=== PATIENT | female | born 1970 | race Caucasian/White ===

== ENCOUNTER 2017-08-10 14:25 | Emergency (ER) | payer OTHER ==
[2017-08-10] MEDS ORDERED: TORAdol 30 mg Injection IM ONE (15:29)
--- NOTE | 2017-08-10 15:37 | XRAY ---
Exam: 3 view left foot series from 08/10/2017. Comparison: None of the left foot. The patient did have a prior right foot exam on 11/28/2007. Indication: No known injury, pain within lateral aspect of left foot. Findings: AP, oblique, and lateral radiographs of the left foot are submitted for evaluation. I see no acute fracture or dislocation. Specifically, no abnormality is seen involving the left fourth or fifth metatarsals. The tarsal-metatarsal junctions align ed correctly. There is mild hallux valgus at the left first MTP joint with slight lateral subluxation of the base of the left great toe with respect to the distal articular surface of the first metatarsal head.. I also note some mild hypertrophic change at the medial margin of the distal left first metatarsal head. In addition, there is some focal soft tissue swelling overlying the dorsal medial aspect of the left first metatarsal head which may represent a bunion. Correlate clinically. 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 The remainder of the joint spaces appears unremarkable. There is an unremarkable plantar arch. A moderate sized plantar left calcaneal spur is seen. No radiopaque soft tissue foreign body is seen. Impression: 1. No acute fracture or dislocation of the left foot is seen. The reason for the patient's lateral left foot pain is not evident by this study. 2. Mild hallux valgus and bunion formation. 3. There is an 8.5 mm in length plantar left calcaneal spur present.
--- NOTE | 2017-08-10 15:38 | ERPHSYRPT ---
- History of Present Illness Time Seen by Provider: 08/10/17 15:24 Source: patient Exam Limitations: no limitations Patient Subjective Stated Complaint: pt here for pain to right foot with no injury Triage Nursing Assessment: pt unable to bear full weight on right foot, has swelling to inner aspect of foost, strong pedal pulse Physician History: 47-year-old white female arrives with complaint of pain in her left foot plantar surface symptoms for a month which is worse for the past 2-3 days. Patient denies any injury she states that her pain is severe in the past couple days. Past medical history patient denies. Past surgical history hernia repair, hysterectomy, Method of Injury: unknown Occurred: other (symptoms for a month worse the past couple of days) Severity of Pain-Max: moderate Severity of Pain-Current: moderate Lower Extremities Pain: foot: right Modifying Factors: Improves With: other (walking) Associated Symptoms: other (pain with walking) Allergies/Adverse Reactions: Penicillins Allergy (Verified 08/10/17 14:39) Hx Influenza Vaccination/Date Given: No Hx Pneumococcal Vaccination/Date Given: No Immunizations Up to Date: Yes - Review of Systems Constitutional: No Fever, No Chills Eyes: No Symptoms Ears, Nose, & Throat: No Symptoms Respiratory: No Cough, No Dyspnea Cardiac: No Chest Pain, No Edema, No Syncope Abdominal/Gastrointestinal: No Abdominal Pain, No Nausea, No Vomiting, No Diarrhea Genitourinary Symptoms: No Dysuria Musculoskeletal: Other (pain and swelling plantar surface left foot for 1 month worse past several days) Skin: No Rash Neurological: No Dizziness, No Focal Weakness, No Sensory Changes Psychological: No Symptoms Endocrine: No Symptoms All Other Systems: Reviewed and Negative - Past Medical History Pertinent Past Medical History: No - Past Surgical History Past Surgical History: Yes Gastrointestinal: Hernia Repair Female Surgical History: Hysterectomy, Section - Social History Smoking Status: Current every day smoker Exposure to second hand smoke: Yes Drug Use: none Patient Lives Alone: No - Female History Hx Last Menstrual Period: hyster Hx Now: No - Nursing Vital Signs Nursing Vital Signs: Initial Vital Signs Pulse Rate 77 08/10/17 14:34 Respiratory Rate 16 08/10/17 14:34 Blood Pressure 104/78 08/10/17 14:34 O2 Sat by Pulse Oximetry 96 08/10/17 14:34 Pain Scale Pain Intensity 8 - Physical Exam General Appearance: mild distress Eyes, Ears, Nose, Throat Exam: moist mucous membranes Neck Exam: non-tender, supple Cardiovascular/Respiratory Exam: chest non-tender, normal breath sounds, regular rate/rhythm, no respiratory distress Gastrointestinal/Abdominal Exam: non-tender, guarding Back Exam: normal inspection, No vertebral tenderness Hips Exam: bilateral: non-tender, normal inspection, normal range of motion, no evidence of injury Legs Exam: bilateral leg: non-tender, normal inspection, normal range of motion , no evidence of injury Knees Exam: bilateral knee: non-tender, normal inspection, normal range of motion, no evidence of injury Ankle Exam: bilateral ankle: non-tender, normal inspection, normal range of motion, no evidence of injury Foot Exam: right foot: non-tender, normal inspection, no evidence of injury, left foot: other (tenderness with palpation, mild edema, plantar surface left foot), bilateral foot: normal range of motion Neuro/Tendon Exam: normal sensation, normal motor functions Mental Status Exam: alert, oriented x 3, cooperative Skin Exam: other (small1 cm darkened area left medial foot distal to heel) SpO2 Interpretation: normal (96%) SpO2: 96 Oxygen Delivery: Room Air - Course Nursing assessment & vital signs reviewed: Yes - Radiology Exams Left Foot X-ray Interpretation: Discussed w/ radiologist (x-ray left foot: Impression: 1. No acute fracture or dislocation of the left foot is seen. The reason for the patient's lateral left foot pain is not evident by this study. 2. Mild hallux valgus and bunion formation. 3. 8.5 mm in length plantar left calcaneal spur is present.) Ordered Tests: Active Orders 24 hr Category Date Time Status Splint STAT Care 08/10/17 15:51 Active FOOT (MINIMUM 3 VIEWS) Stat Exams 08/10/17 15:12 Completed Medication Summary Discontinued Medications Generic Name Dose Route Start Last Admin Trade Name Freq PRN Reason Stop Dose Admin Ketorolac Tromethamine 60 mg 08/10/17 15:29 08/10/17 15:50 Toradol 30 Mg Injection IM 08/10/17 15:30 60 mg STAT ONE Administration Ketorolac Tromethamine Confirm 08/10/17 15:49 Toradol 30 Mg Injection Administered 08/10/17 15:50 Dose 60 mg .ROUTE .STK-MED ONE - Departure Time of Disposition: 15:52 Departure Disposition: Home Clinical Impression: Left foot pain, Plantar fasciitis of left foot Condition: Fair Critical Care Time: No Referrals: CARINA LOERA MD [Primary Care Provider] - Additional Instructions: Return home. Ice to left foot 24-48 hours. Use postop shoe. May use hard sole shoe with heel pads. Naprosyn as directed. [place] as directed. Follow-up with your family doctor. Return for acute distress or for severe symptoms. Prescriptions: Hydrocodone/Acetaminophen [[place] 5-325 Tablet] 1 tab PO Q4-6HPRN PRN #12 tablet MDD 6 tablets PRN Reason: Pain Naproxen 500 mg [Naprosyn 500 MG] 500 mg PO BID #20 tablet
[2017-08-10] MEDS ORDERED: TORAdol 30 mg Injection ONE (15:49)
[2017-08-10 16:13] VITALS: BP 96/44; PULSE 68; O2SAT 98
== END 2017-08-10 16:21 | disposition home or self-care (01) ==
LOC: ED 14:25
DX: M79.672 Pain in left foot (principal); M72.2 Plantar fascial fibromatosis
CPT/HCPCS: 73630; 96372; 99284; J1885

== ENCOUNTER 2020-12-26 15:49 | Emergency (ER) | payer OTHER ==
--- NOTE | 2020-12-26 15:53 | ERPHSYRPT ---
- History of Present Illness Time Seen by Provider: 12/26/20 15:52 Source: patient Exam Limitations: no limitations Physician History: This is a right-handed 50-year-old white female who underwent a right upper extremity surgery approximately 8 days ago. She returned to work and it requires that she does lifting balancing and being active with her upper extremity. Because she had surgery on her right upper extremity she has switched to using her left upper extremity which she does not ordinarily use. She noticed pain in the left shoulder on Wednesday and the last 3 days it is worsened. She denies any fall or localized trauma. She is not on any postoperative narcotic pain medications. She has no primary chest pain. She has no cough. She has no shortness of breath. Occurred: days ago (3) Method of Injury: unknown Quality: aching, throbbing Severity of Pain-Max: moderate Severity of Pain-Current: moderate Extremities Pain Location: shoulder: left Modifying Factors: Improves With: movement Associated Symptoms: No chest discomfort, No chest pain, No dyspnea, No neck pain Allergies/Adverse Reactions: Penicillins Allergy (Verified 08/10/17 14:39) Hx Influenza Vaccination/Date Given: No Hx Pneumococcal Vaccination/Date Given: No Travel Risk - International Travel Have you traveled outside of the country in past 3 weeks: No - Coronavirus Screening Are you exhibiting any of the following symptoms?: No Close contact with a COVID-19 positive Pt in past 14-21 Days: No - Review of Systems Constitutional: No Symptoms Eyes: No Symptoms Ears, Nose, & Throat: No Symptoms Respiratory: No Symptoms Cardiac: No Symptoms Abdominal/Gastrointestinal: No Symptoms Genitourinary Symptoms: No Symptoms Musculoskeletal: Joint Pain Skin: No Symptoms (Left shoulder) Neurological: No Symptoms Psychological: No Symptoms Endocrine: No Symptoms Hematologic/Lymphatic: No Symptoms Immunological/Allergic: No Symptoms All Other Systems: Reviewed and Negative - Past Medical History Pertinent Past Medical History: No - Past Surgical History Past Surgical History: Yes Gastrointestinal: Hernia Repair Female Surgical History: Hysterectomy, Section - Social History Smoking Status: Current every day smoker Exposure to second hand smoke: Yes Drug Use: none Patient Lives Alone: No - Nursing Vital Signs Nursing Vital Signs: Initial Vital Signs Temperature 98.3 F 12/26/20 15:56 Pulse Rate 97 H 12/26/20 15:56 Respiratory Rate 20 12/26/20 15:56 Blood Pressure 123/96 12/26/20 15:56 O2 Sat by Pulse Oximetry 96 12/26/20 15:56 Pain Scale Pain Intensity 10 - Physical Exam General Appearance: no apparent distress, alert, anxiety Eyes, Ears, Nose, Throat Exam: normal ENT inspection, moist mucous membranes Neck Exam: normal inspection, non-tender, supple, full range of motion Cardiovascular/Respiratory Exam: chest non-tender, normal breath sounds, regular rate/rhythm, heart sounds normal, no respiratory distress Abdominal Exam: non-tender Back Exam: normal inspection, normal range of motion, No CVA tenderness, No vertebral tenderness Shoulder Exam: normal inspection, no evidence of injury, limited ROM (Secondary to pain on the left) Elbow/Forearm Exam: normal inspection, non-tender, no evidence of injury, normal ROM (This is referring to the left side. The right side has a cast on her right hand wrist and forearm) Wrist Exam: normal inspection (Left side), non-tender (Left side), no evidence of injury (Side), normal ROM (Left side) Hand Exam: normal inspection, non-tender (Left side), no evidence of injury (Left side), normal ROM (Left side) Neuro/Tendon Exam: normal sensation, normal motor functions, normal tendon functions Mental Status Exam: alert, oriented x 3, cooperative Skin Exam: normal color, warm, dry SpO2 Interpretation: normal O2 Delivery: Room Air - Course Nursing assessment & vital signs reviewed: Yes Ordered Tests: Active Orders 24 hr Category Date Time Status SHOULDER Stat Exams 12/26/20 16:17 Taken Medication Summary Discontinued Medications Generic Name Dose Route Start Last Admin Trade Name Dario PRN Reason Stop Dose Admin Methylprednisolone Sodium 0 mg 12/26/20 16:18 12/26/20 17:07 Succinate 125 mg/ Sterile IM 12/26/20 16:19 125 mg Water 2 ml STAT ONE Administration Hydromorphone HCl 1 mg 12/26/20 16:17 12/26/20 17:08 Hydromorphone 1 Mg/1ml Inj 1 Mg/Ml Syringe IM 12/26/20 16:18 1 mg STAT ONE Administration Hydromorphone HCl Confirm 12/26/20 17:04 Hydromorphone 1 Mg/1ml Inj 1 Mg/Ml Syringe Administered 12/26/20 17:05 Dose 1 mg .ROUTE .STK-MED ONE Methylprednisolone Sodium Succinate Confirm 12/26/20 17:04 Methylprednis Sod Succ 125 Mg/2 Ml Vial Administered 12/26/20 17:05 Dose 125 mg .ROUTE .STK-MED ONE Ondansetron HCl 4 mg 12/26/20 16:18 12/26/20 17:07 Zofran 4 Mg/Udtablet Orally Disintegrating PO 12/26/20 16:19 4 mg STAT ONE Administration Ondansetron HCl Confirm 12/26/20 17:03 Zofran 4 Mg/Udtablet Orally Disintegrating Administered 12/26/20 17:04 Dose 4 mg .ROUTE .STK-MED ONE Orphenadrine Citrate 60 mg 12/26/20 16:18 12/26/20 17:08 Orphenadrine Citrate 60 Mg/2 Ml Amp IM 12/26/20 16:19 60 mg STAT ONE Administration Orphenadrine Citrate Confirm 12/26/20 17:04 Orphenadrine Citrate 60 Mg/2 Ml Amp Administered 12/26/20 17:05 Dose 60 mg .ROUTE .STK-MED ONE Sterile Water Confirm 12/26/20 17:04 Water For Injection,Sterile 10 Ml Vial Administered 12/26/20 17:05 Dose 10 ml IJ .STK-MED ONE - Progress Progress: improved, pain not gone completely Progress Note: 12/26/20 18:05 X-ray left shoulder shows no acute fracture or dislocation. Counseled pt/family regarding: diagnosis, need for follow-up, rad results - Departure Departure Disposition: Home Clinical Impression: Strain of left levator scapulae muscle Condition: Stable Critical Care Time: No Referrals: CARINA LOERA MD [Primary Care Provider] - Follow up/PCP as directed Additional Instructions: Ice pack to left shoulder 3 times a day for the next 48 hours. Wear the sling for comfort sake. Take your medications as prescribed. Follow-up with orthopedic clinic here at [facility] tomorrow morning 8:00 for further management and evaluation. Forms: Work/School Release Form Prescriptions: Cyclobenzaprine HCl 10 mg [Cyclobenzaprine 10 MG] 10 mg PO TID #10 tablet Naproxen 500 mg [Naprosyn 500 MG] 500 mg PO BID #10 tablet Oxycodone HCl/Acetaminophen [Percocet 5-325 mg Tablet] 1 each PO Q8H PRN #6 tablet MDD 3 PRN Reason: Pain
[2020-12-26] MEDS ORDERED: Hydromorphone 1 mg/ml Injection IM ONE (16:17)
[2020-12-26] MEDS ORDERED: Norflex 60 MG/2 ML IM ONE (16:18)
[2020-12-26] MEDS ORDERED: ZOFRAN ODT 4 MG PO ONE (16:18)
[2020-12-26] MEDS ORDERED: solu-MEDROL 125 MG, Sterile H2O 10 ml 2 ML IM ONE ×2 (16:18)
[2020-12-26] MEDS ORDERED: ZOFRAN ODT 4 MG ONE (17:03)
[2020-12-26] MEDS ORDERED: Norflex 60 MG/2 ML ONE (17:04)
[2020-12-26] MEDS ORDERED: Hydromorphone 1 mg/ml Injection ONE (17:04)
[2020-12-26] MEDS ORDERED: Sterile H2O 10 ml IJ ONE (17:04)
[2020-12-26] MEDS ORDERED: solu-MEDROL ONE (17:04)
--- NOTE | 2020-12-27 09:10 | XRAY ---
Indication: Pain. Limited range of motion. Comparison: None 3 view left shoulder demonstrates mild osteopenia, moderate AC degenerative arthropathy, 1.7 cm ossification adjacent to greater tuberosity humerus presumed sequela old injury/inflammation, borderline cardiomegaly, and minimal left lung base fibrosis/scarring. No other bony, articular, or soft tissue abnormalities.
== END 2020-12-26 18:48 | disposition home or self-care (01) ==
LOC: ED 15:49
DX: S46.812A Strain of other muscles, fascia and tendons at shoulder and upper arm level, left arm, initial encounter (principal); X50.0XXA Overexertion from strenuous movement or load, initial encounter; Y99.0 Civilian activity done for income or pay; Z72.0 Tobacco use
CPT/HCPCS: 73030; 96372; 99284; J1170; J2360; J2930; Q0162

== ENCOUNTER 2023-02-08 03:57 | Emergency (ER) | payer OTHER ==
[2023-02-08 04:23] VITALS: RESP 16; TEMP 98.1
[2023-02-08] MEDS ORDERED: Zithromax 250 MG TABLET PO ONE (04:59)
[2023-02-08] MEDS ORDERED: Zithromax 250 MG TABLET ONE (05:03)
[2023-02-08 05:09] VITALS: BP 119/77; PULSE 84
--- NOTE | 2023-02-08 05:09 | ERPHSYRPT ---
- History of Present Illness Time Seen by Provider: 02/08/23 04:59 Source: patient Exam Limitations: no limitations Patient Subjective Stated Complaint: pt states she has a sore throat and feels like she has swelling in her throat. Triage Nursing Assessment: pt alert and oriented, answers questions approp. pt ambulates into room with steady gait noted. respirations nonlabored. skin warm and dry. Physician History: 52-year-old female presented in the ER with 2 days history of progressively worsening sore throat initially started on 1 side and gradually on the other side with painful swallowing. No difficulty breathing or cough. Subjective feeling of fever and chills. Denies any known sick contact. Allergies/Adverse Reactions: Penicillins Allergy (Verified 02/08/23 04:23) Hx Tetanus, Diphtheria Vaccination/Date Given: Yes Hx Influenza Vaccination/Date Given: No Hx Pneumococcal Vaccination/Date Given: No Immunizations Up to Date: Yes Travel Risk - International Travel Have you traveled outside of the country in past 3 weeks: No - Coronavirus Screening Are you exhibiting any of the following symptoms?: No Close contact with a COVID-19 positive Pt in past 14-21 Days: No - Vaccine Status Have you recieved a Covid-19 vaccination: No - Review of Systems Constitutional: Fever, Chills Eyes: No Symptoms Ears, Nose, & Throat: Throat Pain, Throat Swelling Respiratory: No Symptoms Cardiac: No Symptoms Abdominal/Gastrointestinal: No Symptoms Genitourinary Symptoms: No Symptoms Neurological: No Symptoms Hematologic/Lymphatic: No Symptoms - Past Medical History Pertinent Past Medical History: No Other Medical History: mvp - Past Surgical History Past Surgical History: Yes Gastrointestinal: Hernia Repair Musculoskeletal: Orthopedic Surgery Female Surgical History: Hysterectomy, Section Other Surgical History: carpal tunnel - Social History Smoking Status: Current every day smoker How long have you smoked: 34 Exposure to second hand smoke: Yes Drug Use: none Patient Lives Alone: No - Nursing Vital Signs Nursing Vital Signs: Initial Vital Signs Temperature 98.1 F 02/08/23 04:04 Pulse Rate 77 02/08/23 04:04 Respiratory Rate 16 02/08/23 04:04 Blood Pressure 139/92 02/08/23 04:04 O2 Sat by Pulse Oximetry 96 02/08/23 04:04 Pain Scale Pain Intensity 6 - Physical Exam General Appearance: no apparent distress, alert Eye Exam: bilateral eye: normal inspection, PERRL, EOMI Ear Exam: bilateral ear: auricle normal, canal normal, TM normal Nasal Exam: normal inspection Throat Exam: normal, moist mucus membranes, pharynx tenderness, tonsillar exudate, tonsillar swelling Neck Exam: normal inspection, non-tender, supple, full range of motion, lymphadenopathy (L) Cardiovascular/Respiratory Exam: normal breath sounds, regular rate/rhythm Neurologic Exam: alert, oriented x 3, cooperative, calibrator barometers II-XII nml as tested Skin Exam: normal color SpO2 Interpretation: normal SpO2: 96 O2 Delivery: Room Air Ordered Tests: Medication Summary Discontinued Medications Generic Name Dose Route Start Last Admin Trade Name Dario PRN Reason Stop Dose Admin Azithromycin 500 mg 02/08/23 04:59 02/08/23 05:04 Azithromycin 250 Mg Tablet PO 02/08/23 05:00 500 mg STAT ONE Administration Azithromycin Confirm 02/08/23 05:03 Azithromycin 250 Mg Tablet Administered 02/08/23 05:04 Dose 500 mg .ROUTE .STK-MED ONE Lab/Rad Data: Laboratory Results 02/08/23 Range/Units 04:08 Influenza Type A Ag Cancelled Influenza Type B Ag Cancelled RSV (PCR) Cancelled SARS-CoV-2 (PCR) Cancelled Group A Strep Antibody DETECTED (NEGATIVE) - Progress Progress: unchanged Progress Note: 02/08/23 05:08 52-year-old is evaluated for sore throat for couple of days without cough or d ifficulty breathing. Patient is afebrile. She has a positive rapid strep test. She is started on Zithromax. Recommended supportive care along with it. Discussed signs symptoms of worsening needing return to ER which she seems understanding. Stable for discharge. Counseled pt/family regarding: lab results, diagnosis, need for follow-up Medical Desision Making - Diagnostic Testing Diagnostic test were ordered, analyzed, and reviewed by me: Yes - Risk of complications The pt has a mod risk of morbidity or mortality based on: Need for prescription drug management - Departure Departure Disposition: Home Clinical Impression: Acute streptococcal pharyngitis Condition: Stable Critical Care Time: No Referrals: DOCTOR,NO FAMILY [Primary Care Provider] - Follow up with PCP 2 days Instructions: Sore Throat, Adult (DC) Additional Instructions: Take Tylenol/ibuprofen as needed. Follow-up with your primary care for reevaluation in 1 to 2 days. Return to ER for worsening of sore throat, difficulty breathing/swallowing etc. Prescriptions: Azithromycin 250 mg [Zithromax 250 MG TABLET] 250 mg PO DAILY 4 Days #4 tablet
[2023-02-08 05:10] VITALS: O2SAT 96
== END 2023-02-08 05:20 | disposition home or self-care (01) ==
LOC: ED 03:57
DX: J02.0 Streptococcal pharyngitis (principal); Z28.310 Unvaccinated for COVID-19; Z72.0 Tobacco use
CPT/HCPCS: 87651; 99282; A9270-GY

== ENCOUNTER 2024-12-24 14:09 | Observation (INO) | payer OTHER ==
--- NOTE | 2024-12-24 14:38 | ERPHSYRPT ---
- History of Present Illness Patient Subjective Stated Complaint: pt had a left knee surgery 1.2 weeks ago and last night she began having pain in her back when she breathed, the pain continues today and is a lot worse Triage Nursing Assessment: Pt brought to the ER by her , vitals wnl, rates pain as 8/10, pulses normal, skin n/w/d, pain in right back when breathing, pt had a knee surgery 1.2 weeks ago, doesn't appear to be in any distress Physician History: Back pain, patient developed back pain and shortness of breath, status post left knee surgery, meniscus tear, patient is nonweightbearing, she states that she has a lot of pain in her back which is causing her to be short of breath, she denies any severe leg pain, she is on no pain pills, she does take an aspirin daily Timing/Duration: yesterday Severity of Dyspnea-Max: severe Severity of Dyspnea-Current: severe Associated Symptoms: chest pain/discomfort (lower back pain) Allergies/Adverse Reactions: Penicillins Allergy (Verified 12/24/24 14:35) Home Medications: Aspirin 81 mg PO DAILY 12/24/24 [History] Hx Tetanus, Diphtheria Vaccination/Date Given: Yes Hx Influenza Vaccination/Date Given: No Hx Pneumococcal Vaccination/Date Given: No Travel Risk - International Travel Have you traveled outside of the country in past 3 weeks: No - Emerging Infectious Disease Are you exhibiting symptoms associated with any current EIDs: Yes Symptoms: Shortness of Breath - Past Medical History Pertinent Past Medical History: Yes Neurological History: No Pertinent History ENT History: No Pertinent History Cardiac History: Other Respiratory History: No Pertinent History Endocrine Medical History: No Pertinent History Musculoskeletal History: Osteoarthritis GI Medical History: No Pertinent History History: No Pertinent History Psycho-Social History: No Pertinent History Female Reproductive Disorders: No Pertinent History Other Medical History: MITRAL VALVE PROLAPSE. - Past Surgical History Past Surgical History: Yes Neuro Surgical History: No Pertinent History Cardiac: No Pertinent History Respiratory: No Pertinent History Gastrointestinal: Hernia Repair Genitourinary: No Pertinent History Musculoskeletal: Orthopedic Surgery Female Surgical History: Hysterectomy, Section Other Surgical History: carpal tunnel - Female History Hx Last Menstrual Period: N/A Hx Now: No (hysterectomy) - Social History Smoking Status: Never smoker How long have you smoked: 34 Exposure to second hand smoke: No Drug Use: none - Social Determinants of Health Will the patient participate in the screening: Yes Do you worry about a steady place to live?: No Do you have any problems with any of the following?: No known problems In the past 12 months,have you had to go without utilities?: No Transportation Issues: No Has anyone in your support network made you feel unsafe?: No Have you or anyone in your house had to go w/o enough food: No - Nursing Vital Signs Nursing Vital Signs: Initial Vital Signs Respiratory Rate 27 H 12/24/24 14:27 O2 Sat by Pulse Oximetry 98 12/24/24 14:27 Pain Scale Pain Intensity 8 - Physical Exam General Appearance: no apparent distress, alert Eye Exam: PERRL/EOMI Ears, Nose, Throat Exam: hearing grossly normal, normal ENT inspection Neck Exam: normal inspection, supple Respiratory Exam: normal breath sounds, lungs clear Cardiovascular/Chest Exam: normal heart sounds, regular rate/rhythm Abdominal/Gastrointestinal Exam: soft, No tenderness, No distention, No mass Extremity Exam: non-tender, normal range of motion, normal inspection, no calf tenderness, no pedal edema Neurologic Exam: alert, oriented x 3, cooperative, fusing machine feeder II-XII nml as tested, sensation nml, No motor deficits Skin Exam: normal color, warm, No dry SpO2 Interpretation: normal SpO2: 97 Ordered Tests: Active Orders 24 hr Category Date Time Status Special Service Representative STAT Care 12/24/24 14:36 Active EKG-ER Only STAT Care 12/24/24 14:34 Active IV Insertion STAT Care 12/24/24 14:34 Active CHEST WITH CONTRAST [CT] Stat Exams 12/24/24 14:35 Completed CBC W DIFF Stat Lab 12/24/24 14:52 Completed CMP Stat Lab 12/24/24 14:52 Completed D-DIMER QUANTITATIVE Stat Lab 12/24/24 14:52 Completed Lactic Acid Stat Lab 12/24/24 14:50 Completed Medication Summary Generic Name Dose Route Start Last Admin Trade Name Freq PRN Reason Stop Dose Admin Enoxaparin Sodium 80 mg 12/24/24 16:44 Enoxaparin Sodium 80 Mg/0.8 Ml Syringe SQ 12/24/24 16:45 1XONLY ONE Lab/Rad Data: Laboratory Result Diagrams 12/24/24 14:52 12/24/24 14:52 Laboratory Results 11/11/0912/24/24 12/24/24 Range/Units 14:52 14:52 14:52 WBC 10.9 H (3.98-10.04) x10^3/uL RBC 3.91 L (3.93-5.22) x10^6/uL Hgb 12.2 (11.2-15.7) g/dL Hct 37.2 (34.1-44.9) % MCV 95.1 H (79.4-94.8) fL MCH 31.2 (25.6-32.2) pg MCHC 32.8 (32.2-35.5) g/dL RDW 12.7 (11.7-14.4) % Plt Count 285 (182-369) x10^3/uL MPV 8.9 L (9.4-12.3) fL Gran % 64.3 (34.0-71.1) % Immature Gran % (Auto) 0.5 H (0.001-0.429) % Nucleat RBC Rel Count 0.0 (0.00-0.2) % Eos # (Auto) 0.21 (0.04-0.36) x10^3/uL Immature Gran # (Auto) 0.05 H (0.001-0.031) x10^3u/L Absolute Lymphs (auto) 2.26 (1.18-3.74) x10^3/uL Absolute Monos (auto) 1.30 H (0.24-0.86) x10^3/uL Absolute Nucleated RBC 0.00 (0.00-0.012) x10^3u/L Lymphocytes % 20.8 (19.3-51.7) % Monocytes % 11.9 (4.7-12.5) % Eosinophils % 1.9 (0.7-5.8) % Basophils % 0.6 (0.1-1.2) % Absolute Granulocytes 7.00 H (1.56-6.13) x10^3/uL Basophils # 0.07 (0.01-0.08) x10^3/uL D-Dimer 3.24 H* (0.0-0.50) mg/L Sodium 136 (135-145) mmol/L Potassium 4.0 (3.5-5.1) mmol/L Chloride 106 (98-107) mmol/L Carbon Dioxide 25 (22-30) mmol/L Anion Gap 9.4 (5-15) MEQ/L BUN 18 H (7-17) mg/dL Creatinine 0.79 (0.52-1.04) mg/dL Estimated GFR 89.4 ML/MIN Glucose 112 H (74-106) mg/dL Lactic Acid (0.4-2.0) Calcium 9.1 (8.4-10.2) mg/dL Total Bilirubin 0.20 (0.2-1.3) mg/dL AST 23 (14-36) U/L ALT 14 (0-35) U/L Alkaline Phosphatase 68 (38-126) U/L Serum Total Protein 6.8 (6.3-8.2) g/dL Albumin 4.0 (3.5-5.0) g/dL 12/24/24 Range/Units 14:50 WBC (3.98-10.04) x10^3/uL RBC (3.93-5.22) x10^6/uL Hgb (11.2-15.7) g/dL Hct (34.1-44.9) % MCV (79.4-94.8) fL MCH (25.6-32.2) pg MCHC (32.2-35.5) g/dL RDW (11.7-14.4) % Plt Count (182-369) x10^3/uL MPV (9.4-12.3) fL Gran % (34.0-71.1) % Immature Gran % (Auto) (0.001-0.429) % Nucleat RBC Rel Count (0.00-0.2) % Eos # (Auto) (0.04-0.36) x10^3/uL Immature Gran # (Auto) (0.001-0.031) x10^3u/L Absolute Lymphs (auto) (1.18-3.74) x10^3/uL Absolute Monos (auto) (0.24-0.86) x10^3/uL Absolute Nucleated RBC (0.00-0.012) x10^3u/L Lymphocytes % (19.3-51.7) % Monocytes % (4.7-12.5) % Eosinophils % (0.7-5.8) % Basophils % (0.1-1.2) % Absolute Granulocytes (1.56-6.13) x10^3/uL Basophils # (0.01-0.08) x10^3/uL D-Dimer (0.0-0.50) mg/L Sodium (135-145) mmol/L Potassium (3.5-5.1) mmol/L Chloride (98-107) mmol/L Carbon Dioxide (22-30) mmol/L Anion Gap (5-15) MEQ/L BUN (7-17) mg/dL Creatinine (0.52-1.04) mg/dL Estimated GFR ML/MIN Glucose (74-106) mg/dL Lactic Acid 1.0 (0.4-2.0) Calcium (8.4-10.2) mg/dL Total Bilirubin (0.2-1.3) mg/dL AST (14-36) U/L ALT (0-35) U/L Alkaline Phosphatase (38-126) U/L Serum Total Protein (6.3-8.2) g/dL Albumin (3.5-5.0) g/dL - Progress Progress: unchanged Progress Note: 12/24/24 16:[address] results with the patient, consult to hospitalist, admit - Departure Departure Disposition: In-patient Admission Clinical Impression: Acute pulmonary embolism Qualifiers: Pulmonary embolism type: unspecified Acute cor pulmonale presence: without acute cor pulmonale Qualified Code(s): I26.99 - Other pulmonary embolism without acute cor pulmonale Condition: Stable Critical Care Time: No Referrals: ENMANUEL BALLESTEROS NP [Primary Care Provider, [facility]] - Follow up/PCP as directed
[2024-12-24 14:54] LABS: BASOPHIL % 0.6 % (0.1-1.2); Basophil (Absolute #) 0.07 x10^3/uL (0.01-0.08); Eosinophil (Absolute #) 0.21 x10^3/uL (0.04-0.36); Hematocrit 37.2 % (34.1-44.9); Hemoglobin 12.2 g/dL (11.2-15.7); IMMATURE GRAN # 0.05 x10^3u/L (0.001-0.031); IMMATURE GRAN % 0.5 % (0.001-0.429); Lymphocyte (Absolute #) 2.26 x10^3/uL (1.18-3.74); Mean Corpuscular Hemoglobin 31.2 pg (25.6-32.2); Mean Corpuscular Hgb Concent. 32.8 g/dL (32.2-35.5); Monocyte (Absolute #) 1.30 x10^3/uL (0.24-0.86); NUCLEATED RBC # 0.00 x10^3u/L (0.00-0.012); NUCLEATED RBC % 0.0 % (0.00-0.2); Platelet Count 285 x10^3/uL (182-369); Red Blood Count 3.91 x10^6/uL (3.93-5.22); White Blood Count 10.9 x10^3/uL (3.98-10.04)
[2024-12-24 15:08] LABS: Calcium 9.1 mg/dL (8.4-10.2); Carbon Dioxide 25.0 mmol/L (22-30); Creatinine 1 0.79 mg/dL (0.52-1.04); EST GLOMERULAR FILTRATION RATE 89.4 ML/MIN; Glucose 112.0 mg/dL (74-106); Potassium 4.0 mmol/L (3.5-5.1); SGOT/AST 23.0 U/L (14-36); SGPT/ALT 14.0 U/L (0-35); Total Protein 6.8 g/dL (6.3-8.2)
--- NOTE | 2024-12-24 16:28 | XRAY ---
CLINICAL HISTORY: sob COMPARISON: None. TECHNIQUE: Contiguous 3.[address] images of the chest were acquired with administration of 80 ml Isovue 370 Iintravenous contrast. Coronal and sagittal reconstructions were obtained. One of the following dose reduction techniques was utilized for this exam: automated exposure control, adjustment of the mA and/or kV according to patient size, and use of iterative reconstruction. FINDINGS: Lungs: There are small calcific nodules in the right upper and lower lobes. Bilateral basal lung atelectatic bands are present, along with granulomatous ground-glass densities. There is no pleural effusion or pleural thickening. Mediastinum: There are multiple prominent, partially calcific, perivascular/right hilar lymph nodes, with the largest measuring about 10 mm in short axis. Hilar Structures: There is normal size and configuration. There is no enlargement. Heart and Great Vessels: The heart is normal in size and configuration. There is no pericardial effusion. The thoracic aorta and other great vessels are of normal caliber and course. There is no significant atherosclerosis or aneurysm. Pulmonary Arteries: There are multiple filling defects in the right lower lobe segmental and subsegmental pulmonary arterial branches, compatible with acute pulmonary embolisms. There are no signs of right heart strain. Esophagus: The esophagus demonstrates normal course and caliber. There are no masses or dilatation. Bones: There are no fractures or lytic or sclerotic lesions. Bone density and alignment are normal. There is no evidence of rib fractures. Chest Wall: There are no masses or soft tissue abnormalities. Upper Abdomen: Apart from multiple granulomatous calcifications in the spleen, the visualized portions of the liver, spleen, pancreas, adrenal glands, and kidneys are normal. No abnormalities are noted in the visualized upper abdominal organs. Thyroid: The thyroid is normal in size and morphology. There are no nodules or masses. IMPRESSION: 1. Multiple filling defects in the right lower lobe segmental and subsegmental pulmonary arterial branches, compatible with acute pulmonary embolisms. 2. No right heart strain. 3. Multiple prominent, partially calcific, perivascular mediastinal/right hilar lymph nodes, the largest about 10 mm in short axis. 4. Right upper and lower lobes with small calcific nodules and granulomas. Electronically Signed by: Wesley Cao MD. (12/24/2024 16:26:39 EST)
[2024-12-24] MEDS ORDERED: ENOXAPARIN SODIUM SQ ONE (16:49)
[2024-12-24] MEDS: ENOXAPARIN SODIUM SQ ONE (16:50)
--- NOTE | 2024-12-24 17:36 | PCM.HP ---
History of Present Illness - Chief Complaint Chief Complaint: acute pulmonary embolism Date: 12/24/24 History of Present Illness: is a 54 year old female. The patient is a female who underwent left knee surgery for a meniscus tear approximately 1.2 weeks ago. She presented to the emergency department with worsening right-sided back pain that began last night and has intensified today, particularly with breathing. She reports that the pain is significant enough to cause shortness of breath. She was brought to the ER by her . On arrival, her vital signs were within normal limits. She rated her pain as 8 out of 10, and her pulses were normal. Her skin was noted to be warm, dry, and without abnormalities. She is currently nonweight-bearing following her knee surgery. She denies severe leg pain and reports taking only a daily aspirin, with no oth er pain medications. She does not appear to be in acute distress at this time. - Review of Systems Constitutional: No Fever, No Chills Eyes: No Symptoms Ears, Nose, & Throat: No Symptoms Respiratory: Short Of Breath (pain with inspiration), No Cough Cardiac: Edema (LLE), No Chest Pain, No Syncope Abdominal/Gastrointestinal: No Abdominal Pain, No Nausea, No Vomiting, No Diarrhea Genitourinary Symptoms: No Dysuria Musculoskeletal: No Back Pain, No Neck Pain Skin: No Rash Neurological: No Dizziness, No Focal Weakness, No Sensory Changes Psychological: No Symptoms Endocrine: No Symptoms Hematologic/Lymphatic: No Symptoms Immunological/Allergic: No Symptoms Medications & Allergies Home Medications: Home Medication List Aspirin 81 mg PO BID 12/24/24 [History Confirmed 12/24/24] Hydrocodone/Acetaminophen [Hydrocodon-Acetaminophen 5-325] 1 tablet PO Q6HPRN PRN 12/24/24 [History Confirmed 12/24/24] Allergies/Adverse Reactions: Allergies Allergy/AdvReac Type Severity Reaction Status Date / Time Penicillins Allergy Severe Anaphylactic Verified 12/24/24 17:11 Reaction - Past Medical History Past Medical History: Yes Neurological History: No Pertinent History ENT History: No Pertinent History Cardiac History: Other Respiratory History: No Pertinent History Endocrine Medical History: No Pertinent History Musculoskelatal History: Osteoarthritis GI Medical History: Hernia History: No Pertinent History Pyscho-Social History: No Pertinent History Reproductive Disorders: No Pertinent History Comment: MITRAL VALVE PROLAPSE. - Female History Hx Last Menstrual Period: N/A Are you now?: No (hysterectomy) - Past Surgical History Past Surgical History: Yes Neuro Surgical History: No Pertinent History Cardiac History: No Pertinent History Respiratory Surgery: No Pertinent History GI Surgical History: Hernia Repair Genitourinary Surgical Hx: No Pertinent History Musculskeletal Surgical Hx: Orthopedic Surgery Female Surgical History: Hysterectomy, Section Other Surgical History: carpal tunnel. Left knee meniscus Significant Family History: no pertinent family hx - Social History Smoking Status: Never smoker How long have you smoked: 34 Exposure to second hand smoke: No Alcohol: None Drug Use: none - Social Determinants of Health Will the patient participate in the screening: Yes Do you worry about a steady place to live?: No Do you have any problems with any of the following?: No known problems In the past 12 months,have you had to go without utilities?: No Have you or anyone in your house had to go without enough: No Transportation Issues: No Has anyone in your support network made you feel unsafe?: No - Physical Exam Vital Signs: Vital Signs - 24 hr Temp Pulse Resp BP BP Pulse Ox 12/24/24 17:10 97.7 F 66 16 125/78 98 12/24/24 16:46 97 12/24/24 15:31 113/70 12/24/24 15:30 113/70 12/24/24 15:15 109/76 12/24/24 15:00 115/82 97 12/24/24 14:45 77 17 111/67 97 12/24/24 14:30 68 23 126/87 97 12/24/24 14:27 27 H 97 General Appearance: no apparent distress, alert Neurologic Exam: alert, oriented x 3, cooperative, normal mood/affect, nml cerebellar function, nml station & gait, sensation nml, No motor deficits Eye Exam: PERRL/EOMI, eyes nml inspection Ears, Nose, Throat Exam: normal ENT inspection, TMs normal, pharynx normal, moist mucous membranes Neck Exam: normal inspection, non-tender, supple, full range of motion Respiratory Exam: normal breath sounds, lungs clear, No respiratory distress Cardiovascular Exam: regular rate/rhythm, normal heart sounds, normal peripheral pulses Gastrointestinal/Abdomen Exam: soft, normal bowel sounds, No tenderness, No mass Back Exam: normal inspection, normal range of motion, No CVA tenderness, No vertebral tenderness Extremity Exam: normal inspection, normal range of motion, pelvis stable, swelling (LLE) Skin Exam: normal color, warm, dry, No rash Lymphatic Exam: No adenopathy Results - Labs Lab/Micro Results: Lab Results-Last 24 Hours 12/24/24 12/24/24 12/24/24 Range/Units 14:50 14:52 14:52 WBC 10.9 H (3.98-10.04) x10^3/uL RBC 3.91 L (3.93-5.22) x10^6/uL Hgb 12.2 (11.2-15.7) g/dL Hct 37.2 (34.1-44.9) % MCV 95.1 H (79.4-94.8) fL MCH 31.2 (25.6-32.2) pg MCHC 32.8 (32.2-35.5) g/dL RDW 12.7 (11.7-14.4) % Plt Count 285 (182-369) x10^3/uL MPV 8.9 L (9.4-12.3) fL Gran % 64.3 (34.0-71.1) % Immature Gran % (Auto) 0.5 H (0.001-0.429) % Nucleat RBC Rel Count 0.0 (0.00-0.2) % Eos # (Auto) 0.21 (0.04-0.36) x10^3/uL Immature Gran # (Auto) 0.05 H (0.001-0.031) x10^3u/L Absolute Lymphs (auto) 2.26 (1.18-3.74) x10^3/uL Absolute Monos (auto) 1.30 H (0.24-0.86) x10^3/uL Absolute Nucleated RBC 0.00 (0.00-0.012) x10^3u/L Lymphocytes % 20.8 (19.3-51.7) % Monocytes % 11.9 (4.7-12.5) % Eosinophils % 1.9 (0.7-5.8) % Basophils % 0.6 (0.1-1.2) % Absolute Granulocytes 7.00 H (1.56-6.13) x10^3/uL Basophils # 0.07 (0.01-0.08) x10^3/uL D-Dimer (0.0-0.50) mg/L Sodium 136 (135-145) mmol/L Potassium 4.0 (3.5-5.1) mmol/L Chloride 106 (98-107) mmol/L Carbon Dioxide 25 (22-30) mmol/L Anion Gap 9.4 (5-15) MEQ/L BUN 18 H (7-17) mg/dL Creatinine 0.79 (0.52-1.04) mg/dL Estimated GFR 89.4 ML/MIN Glucose 112 H (74-106) mg/dL Lactic Acid 1.0 (0.4-2.0) Calcium 9.1 (8.4-10.2) mg/dL Total Bilirubin 0.20 (0.2-1.3) mg/dL AST 23 (14-36) U/L ALT 14 (0-35) U/L Alkaline Phosphatase 68 (38-126) U/L Serum Total Protein 6.8 (6.3-8.2) g/dL Albumin 4.0 (3.5-5.0) g/dL 12/24/24 Range/Units 14:52 WBC (3.98-10.04) x10^3/uL RBC (3.93-5.22) x10^6/uL Hgb (11.2-15.7) g/dL Hct (34.1-44.9) % MCV (79.4-94.8) fL MCH (25.6-32.2) pg MCHC (32.2-35.5) g/dL RDW (11.7-14.4) % Plt Count (182-369) x10^3/uL MPV (9.4-12.3) fL Gran % (34.0-71.1) % Immature Gran % (Auto) (0.001-0.429) % Nucleat RBC Rel Count (0.00-0.2) % Eos # (Auto) (0.04-0.36) x10^3/uL Immature Gran # (Auto) (0.001-0.031) x10^3u/L Absolute Lymphs (auto) (1.18-3.74) x10^3/uL Absolute Monos (auto) (0.24-0.86) x10^3/uL Absolute Nucleated RBC (0.00-0.012) x10^3u/L Lymphocytes % (19.3-51.7) % Monocytes % (4.7-12.5) % Eosinophils % (0.7-5.8) % Basophils % (0.1-1.2) % Absolute Granulocytes (1.56-6.13) x10^3/uL Basophils # (0.01-0.08) x10^3/uL D-Dimer 3.24 H* (0.0-0.50) mg/L Sodium (135-145) mmol/L Potassium (3.5-5.1) mmol/L Chloride (98-107) mmol/L Carbon Dioxide (22-30) mmol/L Anion Gap (5-15) MEQ/L BUN (7-17) mg/dL Creatinine (0.52-1.04) mg/dL Estimated GFR ML/MIN Glucose (74-106) mg/dL Lactic Acid (0.4-2.0) Calcium (8.4-10.2) mg/dL Total Bilirubin (0.2-1.3) mg/dL AST (14-36) U/L ALT (0-35) U/L Alkaline Phosphatase (38-126) U/L Serum Total Protein (6.3-8.2) g/dL Albumin (3.5-5.0) g/dL - Radiology Impressions Radiology Exams & Impressions: Radiology Procedures Category Date Time Status CHEST WITH CONTRAST [CT] Stat Exams 12/24/24 14:35 Completed Assessment/Plan (1) Acute pulmonary embolism Current Visit: Yes Status: Acute Qualifiers: Pulmonary embolism type: unspecified Acute cor pulmonale presence: without acute cor pulmonale Qualified Code(s): I26.99 - Other pulmonary embolism without acute cor pulmonale Assessment & Plan: - CTA chest: 1. Multiple filling defects in the right lower lobe segmental and subsegmental pulmonary arterial branches, compatible with acute pulmonary embolisms. 2. No right heart strain. 3. Multiple prominent, partially calcific, perivascular mediastinal/right hilar lymph nodes, the largest about 10 mm in short axis. 4. Right upper and lower lobes with small calcific nodules and granulomas. - Start therapeutic Loveonx - Likely 2:2 recent left knee surgery - Tele - RA 98 % - Narcotic pain medication PRN - D-dimer 3.24 - Trops x3 - EKG - CBC, CMP reviewed - Echo in the AM - Protonix for PPI - Colace as she states narcotic pain medication causes constipation. Code(s): I26.99 - OTHER PULMONARY EMBOLISM WITHOUT ACUTE COR PULMONALE (2) S/P left knee surgery Current Visit: Yes Status: Acute Assessment & Plan: - Adds to complexity - Was taking ASA 81mg BID per ortho OP - She is to be NWB per ortho and using knee scooter. - Consider PT eval if needed Code(s): Z98.890 - OTHER SPECIFIED POSTPROCEDURAL STATES (3) Edema, lower extremity Current Visit: Yes Status: Acute Assessment & Plan: - LLE edema - Negative homans sign - Venous Duplex in AM of BLLE Code(s): R60.0 - LOCALIZED EDEMA (4) Leukocytosis Current Visit: Yes Status: Acute Assessment & Plan: - WBC 10.9-trend - likely 2:2 above diagnoses VTE: Lovenox PPI: protonix D/C plan: 1-2 days Next of KIN: spouse- Jim Code status: Full Plan of care time > 50 minutes Code(s): D72.829 - ELEVATED WHITE BLOOD CELL COUNT, UNSPECIFIED Telemedicine Encounter - Telemedicine Encounter Telemedicine Encounter: "The entirety of this encounter was performed via Telemedicine" This visit was performed using real-time audio and video connection between my location and thepatients locationwith the assistance of a surrogateat the patients location. Written or verbal consent was obtained from the patient/guardian to perform this visit [email or web address]. Any patient questions regarding the telemedicine interaction were answered.
[2024-12-24] MEDS ORDERED: NORCO 5/325 MG PO PRN (17:38)
[2024-12-24] MEDS: Hydromorphone 1 mg/ml Injection IV ONE ×2 (17:57→19:54)
[2024-12-24] MEDS: NORCO 5/325 MG PO PRN (19:15)
[2024-12-24] MEDS: Lidoderm Patch 5% TOP ONE (20:34)
[2024-12-24] MEDS: ENOXAPARIN SODIUM SQ SCH (21:01)
[2024-12-25] MEDS: Hydromorphone 1 mg/ml Injection IV PRN (01:15)
[2024-12-25 04:42] LABS: BASOPHIL % 0.6 % (0.1-1.2); Basophil (Absolute #) 0.07 x10^3/uL (0.01-0.08); Eosinophil (Absolute #) 0.02 x10^3/uL (0.04-0.36); Hematocrit 35.4 % (34.1-44.9); Hemoglobin 11.7 g/dL (11.2-15.7); IMMATURE GRAN # 0.05 x10^3u/L (0.001-0.031); IMMATURE GRAN % 0.4 % (0.001-0.429); Lymphocyte (Absolute #) 1.32 x10^3/uL (1.18-3.74); Mean Corpuscular Hemoglobin 31.6 pg (25.6-32.2); Mean Corpuscular Hgb Concent. 33.1 g/dL (32.2-35.5); Monocyte (Absolute #) 1.05 x10^3/uL (0.24-0.86); NUCLEATED RBC # 0.00 x10^3u/L (0.00-0.012); NUCLEATED RBC % 0.0 % (0.00-0.2); Platelet Count 271 x10^3/uL (182-369); Red Blood Count 3.70 x10^6/uL (3.93-5.22); White Blood Count 12.3 x10^3/uL (3.98-10.04)
[2024-12-25] MEDS: TYLENOL 325 MG PO PRN (04:42)
[2024-12-25 04:58] LABS: INR 0.97 (0.8-3.0); PROTIME 10.9 SECONDS (9.4-12.5); PTT 29.9 SECONDS (25.1-36.5)
--- NOTE | 2024-12-25 05:10 | PCM.NOTE ---
Date and Time: 12/25/24 0507 Subjective Assessment: Ms. Tse is a 54-year-old woman with known mitral valve prolapse who came to the ED for sudden back pain with associated shortness of breath. About 10 days ago she underwent left knee meniscus repair and has been ovy-wrlkhp-uneewvt since, reporting limited mobility. She describes a sharp thoracic back pain that worsened abruptly this morning, radiating across the posterior chest and making it difficult to take deep breaths. On arrival, she was hemodynamically stable and oxygenating well on room air. CBC showed mild leukocytosis at 10.9. CMP largely within normal limits aside from an anion gap of 18. D-dimer was significantly elevated at 3.24. Given recent orthopedic surgery and immobility, a CTA chest was obtained and demonstrated multiple acute segmental and sub- segmental pulmonary emboli localized to the right lower lobe circulation. Imaging also noted reactive-appearing calcified mediastinal and right hilar lymph nodes (largest 10 mm) and scattered calcified pulmonary granulomas in the right upper and lower lobes, without evidence of right-sided heart strain or infarction. No pleural effusion or consolidation. Patient was started on therapeutic enoxaparin in the ED with plan to transition to Eliquis today. CM will check cost prior to discharge. 12/25/24: Met with patient bedside. Endorses continued pleuritic posterior side and back pain, though improving. Currdaniely on RA. Lovenox has been transitioned to Eliquis. Pain remains significant with deep inspiration, and patient remains at risk for decompensation in the early treatment window. Continued observation is indicated to monitor for anticoagulation response, ensure stable oxygenation and hemodynamics at rest and with ambulation, and reinforce pulmonary hygiene with incentive spirometry to reduce risk of post-embolic pulmonary complications. Additional day of inpatient monitoring will help confirm sustained clinical stability. - Review of Systems Constitutional: No Symptoms Eyes: No Symptoms Ears, Nose, & Throat: No Symptoms Respiratory: Cough, Short Of Breath Cardiac: No Symptoms Abdominal/Gastrointestinal: No Symptoms Genitourinary Symptoms: Flank Pain Musculoskeletal: Back Pain Skin: No Symptoms Neurological: No Symptoms Psychological: No Symptoms Endocrine: No Symptoms Hematologic/Lymphatic: No Symptoms Immunological/Allergic: No Symptoms Objective Exam General Appearance: no apparent distress Neurologic Exam: alert, oriented x 3, cooperative Skin Exam: normal color Wound Assessment: Skin/Wound Assessment Wound/Incision Assessment Start: 12/24/24 19:23 Text: Status: Active Freq: Q6H Protocol: Document 12/25/24 01:20 AK (Rec: 12/25/24 01:45 AK [id number]) Wound/Incision Assessment Left Knee Wound Assessment Shift Assessment Wound Type Incision Wound Stage Non Pressure Wound Dressing Status Dry & Intact Drainage Amount None Primary Dressing steristrips Comment 3 incisions to left knee s/p meniscus repair - steristrips intact Wound Photo Photo Taken No Eye Exam: PERRL Ears, Nose, Throat Exam: normal ENT inspection Neck Exam: normal inspection Respiratory Exam: crackles/rales Cardiovascular Exam: regular rate/rhythm, normal heart sounds Gastrointestinal/Abdomen Exam: soft, normal bowel sounds Extremity Exam: swelling (LLE) Back Exam: normal inspection Pelvic Exam: deferred Rectal Exam: deferred Objective Data Vital Signs: Vital Signs - 24 hr Temp Pulse Resp BP BP Pulse Ox 12/25/24 04:35 97.5 F 78 22 106/63 94 L 12/25/24 00:00 97.7 F 85 24 106/62 94 L 12/24/24 19:18 72 22 97 12/24/24 17:25 97.7 F 66 16 125/78 98 12/24/24 17:10 97.7 F 66 16 125/78 98 12/24/24 16:46 97 12/24/24 15:31 113/70 12/24/24 15:30 113/70 12/24/24 15:15 109/76 12/24/24 15:00 115/82 97 12/24/24 14:45 77 17 111/67 97 12/24/24 14:30 68 23 126/87 97 12/24/24 14:27 27 H 97 Pain Assessment - Last Documented Pain Intensity 4 Pain Scale Used 0-10 Pain Scale Intake and Output: Intake & Output 12/22/24 12/23/24 12/24/24 12/25/24 11:59 11:59 11:59 11:59 Intake Total 120 Balance 120 Weight 82.3 kg Lab Results: Lab Results-Last 24 Hours 12/24/24 12/24/24 12/24/24 Range/Units 14:50 14:52 14:52 WBC 10.9 H (3.98-10.04) x10^3/uL RBC 3.91 L (3.93-5.22) x10^6/uL Hgb 12.2 (11.2-15.7) g/dL Hct 37.2 (34.1-44.9) % MCV 95.1 H (79.4-94.8) fL MCH 31.2 (25.6-32.2) pg MCHC 32.8 (32.2-35.5) g/dL RDW 12.7 (11.7-14.4) % Plt Count 285 (182-369) x10^3/uL MPV 8.9 L (9.4-12.3) fL Gran % 64.3 (34.0-71.1) % Immature Gran % (Auto) 0.5 H (0.001-0.429) % Nucleat RBC Rel Count 0.0 (0.00-0.2) % Eos # (Auto) 0.21 (0.04-0.36) x10^3/uL Immature Gran # (Auto) 0.05 H (0.001-0.031) x10^3u/L Absolute Lymphs (auto) 2.26 (1.18-3.74) x10^3/uL Absolute Monos (auto) 1.30 H (0.24-0.86) x10^3/uL Absolute Nucleated RBC 0.00 (0.00-0.012) x10^3u/L Lymphocytes % 20.8 (19.3-51.7) % Monocytes % 11.9 (4.7-12.5) % Eosinophils % 1.9 (0.7-5.8) % Basophils % 0.6 (0.1-1.2) % Absolute Granulocytes 7.00 H (1.56-6.13) x10^3/uL Basophils # 0.07 (0.01-0.08) x10^3/uL PT (9.4-12.5) SECONDS INR (0.8-3.0) APTT (25.1-36.5) SECONDS D-Dimer (0.0-0.50) mg/L Sodium 136 (135-145) mmol/L Potassium 4.0 (3.5-5.1) mmol/L Chloride 106 (98-107) mmol/L Carbon Dioxide 25 (22-30) mmol/L Anion Gap 9.4 (5-15) MEQ/L BUN 18 H (7-17) mg/dL Creatinine 0.79 (0.52-1.04) mg/dL Estimated GFR 89.4 ML/MIN Glucose 112 H (74-106) mg/dL Lactic Acid 1.0 (0.4-2.0) Calcium 9.1 (8.4-10.2) mg/dL Total Bilirubin 0.20 (0.2-1.3) mg/dL AST 23 (14-36) U/L ALT 14 (0-35) U/L Alkaline Phosphatase 68 (38-126) U/L Troponin I (0.000-0.033) ng/mL Serum Total Protein 6.8 (6.3-8.2) g/dL Albumin 4.0 (3.5-5.0) g/dL 12/24/24 12/24/24 12/24/24 Range/Units 14:52 18:20 21:01 WBC (3.98-10.04) x10^3/uL RBC (3.93-5.22) x10^6/uL Hgb (11.2-15.7) g/dL Hct (34.1-44.9) % MCV (79.4-94.8) fL MCH (25.6-32.2) pg MCHC (32.2-35.5) g/dL RDW (11.7-14.4) % Plt Count (182-369) x10^3/uL MPV (9.4-12.3) fL Gran % (34.0-71.1) % Immature Gran % (Auto) (0.001-0.429) % Nucleat RBC Rel Count (0.00-0.2) % Eos # (Auto) (0.04-0.36) x10^3/uL Immature Gran # (Auto) (0.001-0.031) x10^3u/L Absolute Lymphs (auto) (1.18-3.74) x10^3/uL Absolute Monos (auto) (0.24-0.86) x10^3/uL Absolute Nucleated RBC (0.00-0.012) x10^3u/L Lymphocytes % (19.3-51.7) % Monocytes % (4.7-12.5) % Eosinophils % (0.7-5.8) % Basophils % (0.1-1.2) % Absolute Granulocytes (1.56-6.13) x10^3/uL Basophils # (0.01-0.08) x10^3/uL PT (9.4-12.5) SECONDS INR (0.8-3.0) APTT (25.1-36.5) SECONDS D-Dimer 3.24 H* (0.0-0.50) mg/L Sodium (135-145) mmol/L Potassium (3.5-5.1) mmol/L Chloride (98-107) mmol/L Carbon Dioxide (22-30) mmol/L Anion Gap (5-15) MEQ/L BUN (7-17) mg/dL Creatinine (0.52-1.04) mg/dL Estimated GFR ML/MIN Glucose (74-106) mg/dL Lactic Acid (0.4-2.0) Calcium (8.4-10.2) mg/dL Total Bilirubin (0.2-1.3) mg/dL AST (14-36) U/L ALT (0-35) U/L Alkaline Phosphatase (38-126) U/L Troponin I < 0.012 < 0.012 (0.000-0.033) ng/mL Serum Total Protein (6.3-8.2) g/dL Albumin (3.5-5.0) g/dL 12/25/24 12/25/24 Range/Units 04:35 04:35 WBC 12.3 H (3.98-10.04) x10^3/uL RBC 3.70 L (3.93-5.22) x10^6/uL Hgb 11.7 (11.2-15.7) g/dL Hct 35.4 (34.1-44.9) % MCV 95.7 H (79.4-94.8) fL MCH 31.6 (25.6-32.2) pg MCHC 33.1 (32.2-35.5) g/dL RDW 13.1 (11.7-14.4) % Plt Count 271 (182-369) x10^3/uL MPV 8.7 L (9.4-12.3) fL Gran % 79.5 H (34.0-71.1) % Immature Gran % (Auto) 0.4 (0.001-0.429) % Nucleat RBC Rel Count 0.0 (0.00-0.2) % Eos # (Auto) 0.02 L (0.04-0.36) x10^3/uL Immature Gran # (Auto) 0.05 H (0.001-0.031) x10^3u/L Absolute Lymphs (auto) 1.32 (1.18-3.74) x10^3/uL Absolute Monos (auto) 1.05 H (0.24-0.86) x10^3/uL Absolute Nucleated RBC 0.00 (0.00-0.012) x10^3u/L Lymphocytes % 10.7 L (19.3-51.7) % Monocytes % 8.6 (4.7-12.5) % Eosinophils % 0.2 L (0.7-5.8) % Basophils % 0.6 (0.1-1.2) % Absolute Granulocytes 9.77 H (1.56-6.13) x10^3/uL Basophils # 0.07 (0.01-0.08) x10^3/uL PT 10.9 (9.4-12.5) SECONDS INR 0.97 (0.8-3.0) APTT 29.9 (25.1-36.5) SECONDS D-Dimer (0.0-0.50) mg/L Sodium (135-145) mmol/L Potassium (3.5-5.1) mmol/L Chloride (98-107) mmol/L Carbon Dioxide (22-30) mmol/L Anion Gap (5-15) MEQ/L BUN (7-17) mg/dL Creatinine (0.52-1.04) mg/dL Estimated GFR ML/MIN Glucose (74-106) mg/dL Lactic Acid (0.4-2.0) Calcium (8.4-10.2) mg/dL Total Bilirubin (0.2-1.3) mg/dL AST (14-36) U/L ALT (0-35) U/L Alkaline Phosphatase (38-126) U/L Troponin I (0.000-0.033) ng/mL Serum Total Protein (6.3-8.2) g/dL Albumin (3.5-5.0) g/dL Radiology Exams: Radiology Procedures Category Date Time Status CHEST WITH CONTRAST [CT] Stat Exams 12/24/24 14:35 Completed ECHO W/2D AND DOPPLER [US] Routine Exams 12/24/24 18:10 Ordered VENOUS BILATERAL EXTREMITY [US] Routine Exams 12/24/24 18:06 Ordered Medications: Medications Generic Name Dose Route Start Last Admin Trade Name Dario PRN Reason Stop Dose Admin Acetaminophen 650 mg 12/25/24 04:39 12/25/24 04:42 Acetaminophen 325 Mg Tablet PO 01/24/25 04:38 650 mg Q6H PRN PRN Administration PAIN AND/OR FEVER Hydrocodone Bitart/Acetaminophen 1 tab 12/24/24 19:12 12/24/24 19:15 Hydrocodone/Apap 5/325 1 Tab Tablet PO 12/29/24 17:37 1 tab Q6HPRN PRN Administration PAIN Apixaban 10 mg 12/25/24 10:00 Apixaban 2.5 Mg Tablet PO 01/01/25 09:59 BID TITO Hydromorphone HCl 1 mg 12/24/24 17:52 12/25/24 01:15 Hydromorphone 1 Mg/1ml Inj IV 12/29/24 17:51 1 mg Q4H PRN PRN Administration PAIN Discontinued Medications Generic Name Dose Route Start Last Admin Trade Name Dario PRN Reason Stop Dose Admin Hydrocodone Bitart/Acetaminophen tab 12/24/24 17:38 Hydrocodone/Apap 5/325 1 Tab Tablet PO 12/29/24 17:37 Q6HPRN PRN PAIN Enoxaparin Sodium 80 mg 12/24/24 16:44 12/24/24 16:50 Enoxaparin Sodium 80 Mg/0.8 Ml Syringe SQ 12/24/24 16:45 80 mg 1XONLY ONE Administration Enoxaparin Sodium Confirm 12/24/24 16:49 Enoxaparin Sodium 80 Mg/0.8 Ml Syringe Administered 12/24/24 16:50 Dose 80 mg SQ .STK-MED ONE Enoxaparin Sodium 80 mg 12/24/24 22:00 12/24/24 21:01 Enoxaparin Sodium 80 Mg/0.8 Ml Syringe SQ 01/23/25 21:59 80 mg BID TITO Administration Hydromorphone HCl 1 mg 12/24/24 17:52 12/24/24 17:57 Hydromorphone 1 Mg/1ml Inj IV 12/24/24 17:53 1 mg STAT ONE Administration Hydromorphone HCl 0.5 mg 12/24/24 19:49 12/24/24 19:54 Hydromorphone 1 Mg/1ml Inj IV 12/24/24 19:50 0.5 mg STAT ONE Administration Lidocaine 1 patch 12/24/24 20:32 12/24/24 20:34 Lidocaine Hcl 1 Patch Patch TOP 12/24/24 20:33 1 patch ONCE ONE Administration Lorazepam 0.5 mg 12/24/24 21:19 Lorazepam 2 Mg/1 Ml 2 Mg Vial IV 12/24/24 21:20 1XONLY ONE Assessment/Plan (1) Acute pulmonary embolism Current Visit: Yes Status: Acute Qualifiers: Pulmonary embolism type: unspecified Acute cor pulmonale presence: without acute cor pulmonale Qualified Code(s): I26.99 - Other pulmonary embolism without acute cor pulmonale Assessment & Plan: -CT PE confirmed right lower lobe emboli; no right heart strain. -D-dimer 3.24. Recent knee surgery and immobility highly contributory. -Initiated on therapeutic Lovenox - transition to Eliquis 10mg po bid x 7 days and then 5mg bid thereafter- today -Baseline EKG, monitor oxygen needs; telemetry first 24 hours given clot burden. -Encourage gradual mobilization with PT evaluation given ucp-qyqazl-lgafluq status. -Educate regarding bleeding precautions, return precautions, and importance of adherence -venous doppler BLE today -IS Code(s): I26.99 - OTHER PULMONARY EMBOLISM WITHOUT ACUTE COR PULMONALE (2) Edema, lower extremity Current Visit: Yes Status: Acute Assessment & Plan: - LLE edema - Negative homans sign - Venous Duplex today of BLLE Code(s): R60.0 - LOCALIZED EDEMA (3) Leukocytosis Current Visit: Yes Status: Acute Assessment & Plan: -Likely reactive ; afebrile, no infectious signs, no consolidation on CT. -Monitor trend; no empiric antibiotics indicated without infectious source. -Trend CBC Code(s): D72.829 - ELEVATED WHITE BLOOD CELL COUNT, UNSPECIFIED (4) Mitral valve prolapse Current Visit: Yes Status: Acute Assessment & Plan: -Stable; no symptoms of MR clinically. -Continue baseline management Code(s): I34.1 - NONRHEUMATIC MITRAL (VALVE) PROLAPSE (5) S/P left knee surgery Current Visit: Yes Status: Acute Assessment & Plan: -s/p surgery approximately 10 days ago; immobility likely precipitated VTE. -Coordinate with ortho for mobilization parameters. -PT/OT for safe ambulation strategies and DVT prevention exercises within restrictions -DC prophylactic ASA- transition to Eliquis VTE: Lovenox - Eliquis Dispo: 1-2 days Code Status: Full Code Plan of care time spent greater than 40 mins Code(s): Z98.890 - OTHER SPECIFIED POSTPROCEDURAL STATES
[2024-12-25] MEDS: Ativan 2 MG/1 ML VIAL IV ONE (05:21)
[2024-12-25 05:46] LABS: Calcium 8.9 mg/dL (8.4-10.2); Carbon Dioxide 24.0 mmol/L (22-30); Creatinine 1 0.54 mg/dL (0.52-1.04); EST GLOMERULAR FILTRATION RATE 110.0 ML/MIN; Glucose 122.0 mg/dL (74-106); Potassium 4.4 mmol/L (3.5-5.1)
[2024-12-25] MEDS: ELIQUIS 2.5 MG TABLET PO SCH (08:44)
[2024-12-25 15:20] LABS: Glucose, Urine Negative (Negative); Protein,Urine Dip Negative (Negative)
[2024-12-25] MEDS: Docusate Sodium 100 MG PO PRN (15:29)
--- NOTE | 2024-12-25 15:32 | XRAY ---
Indication: Edema. Positive pulmonary embolus. Two-dimensional sonogram and color Doppler imaging major venous vessels left and right leg performed. Comparison: None No thrombus seen in the examined deep venous vessels left and right leg including greater saphenous vein. Veins demonstrate normal compressibility. Venous waveforms are normal with and without augmentation. Impression: Left and right leg negative for DVT.
[2024-12-26 04:31] LABS: BASOPHIL % 0.7 % (0.1-1.2); Basophil (Absolute #) 0.05 x10^3/uL (0.01-0.08); Eosinophil (Absolute #) 0.16 x10^3/uL (0.04-0.36); Hematocrit 32.6 % (34.1-44.9); Hemoglobin 10.7 g/dL (11.2-15.7); IMMATURE GRAN # 0.04 x10^3u/L (0.001-0.031); IMMATURE GRAN % 0.5 % (0.001-0.429); Lymphocyte (Absolute #) 1.63 x10^3/uL (1.18-3.74); Mean Corpuscular Hemoglobin 31.1 pg (25.6-32.2); Mean Corpuscular Hgb Concent. 32.8 g/dL (32.2-35.5); Monocyte (Absolute #) 0.84 x10^3/uL (0.24-0.86); NUCLEATED RBC # 0.00 x10^3u/L (0.00-0.012); NUCLEATED RBC % 0.0 % (0.00-0.2); Platelet Count 221 x10^3/uL (182-369); Red Blood Count 3.44 x10^6/uL (3.93-5.22); White Blood Count 7.5 x10^3/uL (3.98-10.04)
[2024-12-26 04:45] LABS: Calcium 8.5 mg/dL (8.4-10.2); Carbon Dioxide 27.0 mmol/L (22-30); Creatinine 1 0.57 mg/dL (0.52-1.04); EST GLOMERULAR FILTRATION RATE 108.6 ML/MIN; Glucose 110.0 mg/dL (74-106); Potassium 4.0 mmol/L (3.5-5.1); SGOT/AST 19.0 U/L (14-36); SGPT/ALT 10.0 U/L (0-35); Total Protein 6.4 g/dL (6.3-8.2)
[2024-12-26 07:14] VITALS: TEMP 98.1
--- NOTE | 2024-12-26 08:05 | PCM.DS ---
Discharge Summary Date of Admission: 12/24/24 17:09 Date of Discharge: 12/26/24 Admitting Physician: MARIE PEÑA MD Primary Care Provider: ENMANUEL BALLESTEROS Allergies Allergies Penicillins Allergy (Severe, Verified 12/24/24 17:11) Anaphylactic Reaction Hospital Summary - Hospital Course Hospital Course: Ms. Tse is a 54-year-old woman with known mitral valve prolapse presented with sudden pleuritic thoracic back pain radiating across the posterior chest, accompanied by dyspnea. She is 10 days status-post left knee meniscus repair and has been vpb-khjccb-dfvrquc with markedly reduced mobility. On ED arrival she was hemodynamically stable and oxygenating on room air. Labs revealed mild leukocytosis (WBC 10.9 ) without fever or systemic inflammatory signs, an elevated anion gap of 18 on CMP, and markedly elevated D-dimer at 3.24. CTA chest demonstrated multiple acute segmental and subsegmental pulmonary emboli in the right lower lobe without right-sided heart strain, infarction, pleural effusion, or consolidation. Imaging also noted calcified mediastinal and hilar lymph nodes (largest 10 mm) and scattered calcified granulomas consistent with prior granulomatous disease. She was anticoagulated with therapeutic enoxaparin and transitioned to Eliquis during admission. Venous Doppler negative for DVT. Pain improved, oxygenation remained stable on room air, and she demonstrated hemodynamic stability at rest and with activity. She was instructed on bleeding precautions, medication adherence, pulmonary hygiene, and gradual mobilization within orthopedic precautions. She is medically stable for discharge. Eliquis starter pack sent to pharmacy at no cost for the patient. Discharge Note New Diagnosis:PE New Medications: Eliquis 10mg po bid x 7 days; then Eliquis 5mg po bid there after Follow Up: PCP I spent 35 minutes cyyp-er-olau with the patient on the day of discharge performing discharge exam, discussing hospital stay and discharge instructions with patient and caregivers, preparation of discharge records, prescriptions & referral forms and addressing any questions/concerns the patient had as documented above. - Vitals & Intake/Output Vital Signs: Vital Signs Temperature 98.1 F 12/26/24 07:12 Pulse Rate 61 12/26/24 07:12 Respiratory Rate 18 12/26/24 07:12 Blood Pressure 90/51 12/26/24 07:12 O2 Sat by Pulse Oximetry 95 12/26/24 07:12 Intake & Output: Intake & Output 12/23/24 12/24/24 12/25/24 12/26/24 11:59 11:59 11:59 11:59 Intake Total 720 660 Balance 720 660 Weight 82.3 kg - Lab Result Diagrams: 12/26/24 04:20 12/26/24 04:20 Lab Results-Last 24 Hrs: Lab Results-Last 24 Hours 12/25/24 12/26/24 12/26/24 Range/Units 15:09 04:20 04:20 WBC 7.5 (3.98-10.04) x10^3/uL RBC 3.44 L (3.93-5.22) x10^6/uL Hgb 10.7 L (11.2-15.7) g/dL Hct 32.6 L (34.1-44.9) % MCV 94.8 (79.4-94.8) fL MCH 31.1 (25.6-32.2) pg MCHC 32.8 (32.2-35.5) g/dL RDW 12.9 (11.7-14.4) % Plt Count 221 (182-369) x10^3/uL MPV 8.7 L (9.4-12.3) fL Gran % 63.5 (34.0-71.1) % Immature Gran % (Auto) 0.5 H (0.001-0.429) % Nucleat RBC Rel Count 0.0 (0.00-0.2) % Eos # (Auto) 0.16 (0.04-0.36) x10^3/uL Immature Gran # (Auto) 0.04 H (0.001-0.031) x10^3u/L Absolute Lymphs (auto) 1.63 (1.18-3.74) x10^3/uL Absolute Monos (auto) 0.84 (0.24-0.86) x10^3/uL Absolute Nucleated RBC 0.00 (0.00-0.012) x10^3u/L Lymphocytes % 21.9 (19.3-51.7) % Monocytes % 11.3 (4.7-12.5) % Eosinophils % 2.1 (0.7-5.8) % Basophils % 0.7 (0.1-1.2) % Absolute Granulocytes 4.73 (1.56-6.13) x10^3/uL Basophils # 0.05 (0.01-0.08) x10^3/uL Sodium 132 L (135-145) mmol/L Potassium 4.0 (3.5-5.1) mmol/L Chloride 102 (98-107) mmol/L Carbon Dioxide 27 (22-30) mmol/L Anion Gap 7.7 (5-15) MEQ/L BUN 13 (7-17) mg/dL Creatinine 0.57 (0.52-1.04) mg/dL Estimated GFR 108.6 ML/MIN Glucose 110 H (74-106) mg/dL Calcium 8.5 (8.4-10.2) mg/dL Total Bilirubin 0.30 (0.2-1.3) mg/dL AST 19 (14-36) U/L ALT 10 (0-35) U/L Alkaline Phosphatase 68 (38-126) U/L Serum Total Protein 6.4 (6.3-8.2) g/dL Albumin 3.5 (3.5-5.0) g/dL Urine Color Yellow (Yellow) Urine Appearance Clear (Clear) Urine pH 6.0 (4.6-8.0) Ur Specific Orange 1.025 (1.005-1.030) Urine Protein Negative (Negative) Urine Glucose (UA) Negative (Negative) mg/dL Urine Ketones Negative (Negative) Urine Blood Small A (Negative) Urine Nitrite Negative (Negative) Urine Bilirubin Negative (Negative) Urine Urobilinogen 0.2 (0.2) mg/dL Ur Leukocyte Esterase Small A (Negative) U Hyaline Cast (Auto) NONE SEEN (0-2) /LPF Urine Microscopic RBC 3-5 (0-5) /HPF Urine Microscopic WBC 3-5 (0-5) /HPF Ur Epithelial Cells None Seen (None Seen) /HPF Urine Bacteria None Seen (None Seen) /HPF Urine Culture Reflexed YES (NO) - Radiology Exams Ordered Rad Exams-Entire Visit: Radiology Procedures Category Date Time Status CHEST WITH CONTRAST [CT] Stat Exams 12/24/24 14:35 Completed ECHO W/2D AND DOPPLER [US] Routine Exams 12/25/24 08:00 Taken VENOUS BILATERAL EXTREMITY [US] Routine Exams 12/25/24 08:00 Completed - Procedures and Test Procedures and Tests throughout Hospitalization: Therapy Orders & Screens 12/25/24 11:20 Incentive Spirometry TID Comment: Diagnosis: acute pulmonary embolism Discharge Exam General Appearance: no apparent distress Neurologic Exam: alert, oriented x 3, cooperative Eye Exam: PERRL Ears, Nose, Throat Exam: normal ENT inspection Neck Exam: normal inspection Respiratory Exam: normal breath sounds, lungs clear Cardiovascular Exam: regular rate/rhythm, normal heart sounds Gastrointestinal/Abdomen Exam: soft, normal bowel sounds Pelvic Exam: deferred Rectal Exam: deferred Back Exam: normal inspection Extremity Exam: normal inspection Skin Exam: normal color Wound Assessment: Skin/Wound Assessment Wound/Incision Assessment Start: 12/24/24 19:23 Text: Status: Active Freq: Q6H Protocol: Document 12/26/24 01:59 AK (Rec: 12/26/24 02:00 AK [id number]) Wound/Incision Assessment Left Knee Wound Assessment Shift Assessment Wound Type Incision Wound Stage Non Pressure Wound Dressing Status Dry & Intact Drainage Amount None Primary Dressing steristrips Comment 3 incisions to left knee s/p meniscus repair - steristrips intact Wound Photo Photo Taken No Final Diagnosis/Problem List - Final Discharge Diagnosis/Problem (1) Acute pulmonary embolism Current Visit: Yes Status: Acute Assessment & Plan: Provoked VTE following recent knee surgery and immobility. CTA confirmed segmental/subsegmental RLL PE, no right-heart strain. Continue Eliquis 10 mg PO BID for 7 days, then 5 mg PO BID thereafter Reinforced adherence and bleeding precautions; avoid NSAIDs and high-risk trauma. Gradual mobilization; avoid sedentary periods. Incentive spirometry and pulmonary hygiene to reduce risk of post-embolic complications. Outpatient follow-up in 12 weeks; return for chest pain, dyspnea, syncope, bleeding. Code(s): I26.99 - OTHER PULMONARY EMBOLISM WITHOUT ACUTE COR PULMONALE (2) Edema, lower extremity Current Visit: Yes Status: Acute Assessment & Plan: Likely postsurgical/immobility-related; Homans sign negative. Bilateral venous duplex obtained to exclude concurrent DVT which was negative Elevation, gradual mobilization, compression only if cleared by ortho and not contraindicated by anticoagulation. Code(s): R60.0 - LOCALIZED EDEMA (3) Leukocytosis Current Visit: Yes Status: Acute Assessment & Plan: resolved Code(s): D72.829 - ELEVATED WHITE BLOOD CELL COUNT, UNSPECIFIED (4) Mitral valve prolapse Current Visit: Yes Status: Acute Assessment & Plan: Stable; no MR symptoms or hemodynamic effects. Continue routine outpatient cardiology surveillance. Code(s): I34.1 - NONRHEUMATIC MITRAL (VALVE) PROLAPSE (5) S/P left knee surgery Current Visit: Yes Status: Acute Assessment & Plan: Immobility precipitated VTE. Continue orthopedic restrictions. PT/OT for progressive mobilization and strengthening within NWB guidelines. Discontinue postoperative aspirin; now fully anticoagulated with Eliquis Code(s): Z98.890 - OTHER SPECIFIED POSTPROCEDURAL STATES - Discharge Discharge Date: 12/26/24 Disposition: Home, Self-Care Condition: Stable Prescriptions: New Apixaban [Eliquis] See Rx Instructions .ROUTE .COMPLEX 30 Days #1 kit Apixaban [Eliquis 2.5 mg Tablet] See Rx Instructions .ROUTE .COMPLEX 30 Days #42 tablet Continue Hydrocodone/Acetaminophen [Hydrocodon-Acetaminophen 5-325] 1 tablet PO Q6HPRN PRN PRN Reason: Pain Discontinued Aspirin 81 mg PO BID Instructions: Apixaban, Pulmonary embolism - Discharge instructions Follow up with: ENMANUEL BALLESTEROS NP [Primary Care Provider, [facility]] - 01/02/25 11:00 am Forms: Discharge Instructions
[2024-12-26 11:19] VITALS: BP 108/56; PULSE 60; RESP 16; O2SAT 96
== END 2024-12-26 13:10 | disposition home or self-care (01) ==
LOC: ED 14:09 → MED SURG 17:09
PROVIDERS: ADMIT Internal Medicine; ATTEND Internal Medicine
DX: I26.99 Other pulmonary embolism without acute cor pulmonale (principal); R60.0 Localized edema; D72.829 Elevated white blood cell count, unspecified; I34.1 Nonrheumatic mitral (valve) prolapse; Z79.01 Long term (current) use of anticoagulants; R07.9 Chest pain, unspecified; Z98.890 Other specified postprocedural states; Z79.899 Other long term (current) drug therapy